=== PATIENT | female | born 1970 | race African-American/Black ===

== ENCOUNTER 2023-04-25 14:59 | Emergency (ER) | payer OTHER, SELFPAY ==
[2023-04-25 15:16] VITALS: BP 157/93
--- NOTE | 2023-04-25 18:59 | ED.GENMED ---
History of Present Illness
<Eunice Farrell BLOCKMAN - Last Filed: 04/27/23 17:30>
General
Chief Complaint: Gynecological Problem
Source: patient
Exam Limitations: none
Time Seen by Provider: 04/25/23 18:34
Nursing documentation reviewed up to this point in time: agreed with
Travel History
Have you had any contact with someone who has COVID-19?: No
Do you have any symptoms of coronavirus? Fever > 100 degrees, chills, cough, shortness of breath, sore throat, loss of taste or smell, muscle aches, or headache?: No
History of Present Illness
History of Present Illness:
53-year-old female states she has a known cyst on her left ovary that was diagnosed 01/2022. She feels left lower abdominal pressure. She also states she sees fatigued, has heartburn, 'lots of growling in my stomach' and thinks the symptoms are
related to her ovarian cyst.
Records reviewed: pt has Pelvic and trans vaginal US 01/2022: IMPRESSION:
[place] anechoic structure in the right adnexa measuring 3.5 x 1 x 2.8 cm. Uncertain etiology and significance. Difficulty visualizing right ovarian tissue secondary to large amount of bowel gas. Consider further evaluation/characterization with
follow-up MRI.
Pt never had the MRI as her became ill.
Past History
<Eunice Farrell BLOCKMAN - Last Filed: 04/27/23 17:30>
Past History
ED Past Surgical History: Gynecological (Hysterectomy) and Orthopedic
Social History
Tobacco: Smoker
Alcohol: None
Personal: Single
Living: alone
Employment: Employed
Review of Systems
<Eunice Farrell BLOCKMAN - Last Filed: 04/27/23 17:30>
Review of Systems
Allergies reviewed?: Yes
All Other Systems: ROS reviewed and negative except as documented in HPI and ROS
Constitutional: Reports fatigue; Denies fever
Respiratory: Denies trouble breathing
Cardiac: Denies chest pain
ABD/GI: Reports abdominal pain; Denies nausea, vomiting, diarrhea, constipated or anorexia
: Denies dysuria, frequency, difficulty voiding or urgency
Musculoskeletal: Reports no symptoms
Skin: Reports no symptoms
Neurological: Reports no symptoms
Phy Exam
<Eunice Farrell, BLOCKMAN - Last Filed: 04/27/23 17:30>
Physical Exam
Physical Exam:
GENERAL: No acute distress. A&Ox3.
CONSTITUTIONAL: Afebrile.
EYES: Clear, conjunctivae normal
ENMT: moist mucus membranes, Pharynx nl
RESPIRATORY: Regular respirations, nonlabored, lungs clear.
CARDIOVASCULAR: Regular rate and rhythm, no murmurs, no rubs.
GI: Soft, tender LLQ. normal BS
MUSCULOSKELETAL: Moves with ease. Well perfused.
SKIN: Warm, dry, normal
PSYCH: Normal mood and affect. Well kept, interactive and appropriate
NEUROLOGIC: Awake, alert and oriented. No focal neurological deficits
Course
<Eunice Farrell, BLOCKMAN - Last Filed: 04/27/23 17:30>
Orders/Labs/Results
Orders:
Orders
04/25/23 18:54
US Pelvis W Transvag Combined Urgent
Comment:
Reason For Exam: LLQ pain
04/25/23 19:25
Complete Blood Count/With Diff Urgent
Comprehensive Metabolic Panel Urgent
HCG, Serum Qualitative Screen Urgent
Comment: ADD ON
Urinalysis Reflex To Culture Urgent
Date Specimen was Collected: 04/25/23
Time Specimen was Collected: 19:24
Urine Microscopic Reflex Cult Urgent
Urine Culture Urgent
KANNAN Source: U
Specimen Description:
Date Specimen was Collected: 04/25/23
Time Specimen was Collected: 19:24
04/25/23 22:05
Add On- LAB Urgent
Tests Added?: serum HCG
04/25/23 22:17
0.9% Sodium Chloride 500 ml [Nss] 500 ml IV BOLUS
04/25/23 22:26
Iohexol [Omnipaque] See Protocol PO NOW STA
04/26/23 00:35
CT Abd/pel W Iv And Oral Contr Urgent
Reason For Exam: abdominal pain, free fluid seen on US R adenexa
Abnormal Lab Results
04/25/23
19:25
Carbon Dioxide 31 H mmol/L
(22-30)
BUN 18 H mg/dl
(7-17)
Glucose 101 H mg/dl
(70-99)
Ur Occult Blood Reflex Trace A
(Negative)
Urine Bacteria (Reflex) Many A
(Negative)
04/25/23 19:25
04/25/23 19:25
Vital Signs
Initial and Last Documented VS:
Initial Vital Signs
Temp Pulse Resp BP Pulse Ox
98.3 F 81 18 157/93 98
04/25/23 15:16 04/25/23 15:16 04/25/23 15:16 04/25/23 15:16 04/25/23 15:16
Last Documented Vital Signs
Temp Pulse Resp BP Pulse Ox
98.3 F 68 16 132/83 100
04/25/23 15:16 04/26/23 01:39 04/26/23 01:39 04/26/23 01:39 04/26/23 01:39
Salbadorlt;Jackson Devine, DO - Last Filed: 04/26/23 01:27>
Orders/Labs/Results
Orders:
Orders
04/25/23 18:54
US Pelvis W Transvag Combined Urgent
Comment:
Reason For Exam: LLQ pain
04/25/23 19:25
Complete Blood Count/With Diff Urgent
Comprehensive Metabolic Panel Urgent
HCG, Serum Qualitative Screen Urgent
Comment: ADD ON
Urinalysis Reflex To Culture Urgent
Date Specimen was Collected: 04/25/23
Time Specimen was Collected: :24
Urine Microscopic Reflex Cult Urgent
Urine Culture Urgent
[place] Source: U
Specimen Description:
Date Specimen was Collected: 04/25/23
Time Specimen was Collected: :
04/25/23 22:05
Add On- LAB Urgent
Tests Added?: serum HCG
04/25/23 22:17
0.9% Sodium Chloride 500 ml [Nss] 500 ml IV BOLUS
04/25/23 22:26
Iohexol [Omnipaque] See Protocol PO NOW STA
04/26/23 00:35
CT Abd/pel W Iv And Oral Contr Urgent
Reason For Exam: abdominal pain, free fluid seen on US R adenexa
Abnormal Lab Results
04/25/23
19:25
Carbon Dioxide 31 H mmol/L
(22-30)
BUN 18 H mg/dl
(7-17)
Glucose 101 H mg/dl
(70-99)
Ur Occult Blood Reflex Trace A
(Negative)
Urine Bacteria (Reflex) Many A
(Negative)
04/25/23 19:25
04/25/23 19:25
Vital Signs
Initial and Last Documented VS:
Initial Vital Signs
Temp Pulse Resp BP Pulse Ox
98.3 F 81 18 157/93 98
04/25/23 15:16 04/25/23 15:16 04/25/23 15:16 04/25/23 15:16 04/25/23 15:16
Last Documented Vital Signs
Temp Pulse Resp BP Pulse Ox
98.3 F 68 16 132/83 100
04/25/23 15:16 04/26/23 01:39 04/26/23 01:39 04/26/23 01:39 04/26/23 01:39
<Barney Tadeo PA-C - Last Filed: 04/28/23 13:50>
Orders/Labs/Results
Orders:
Orders
04/25/23 18:54
US Pelvis W Transvag Combined Urgent
Comment:
Reason For Exam: LLQ pain
04/25/23 19:25
Complete Blood Count/With Diff Urgent
Comprehensive Metabolic Panel Urgent
HCG, Serum Qualitative Screen Urgent
Comment: ADD ON
Urinalysis Reflex To Culture Urgent
Date Specimen was Collected: 04/25/23
Time Specimen was Collected: 19:24
Urine Microscopic Reflex Cult Urgent
Urine Culture Urgent
[place] Source: U
Specimen Description:
Date Specimen was Collected: 04/25/23
Time Specimen was Collected: 19:24
04/25/23 22:05
Add On- LAB Urgent
Tests Added?: serum HCG
04/25/23 22:17
0.9% Sodium Chloride 500 ml [Nss] 500 ml IV BOLUS
04/25/23 22:26
Iohexol [Omnipaque] See Protocol PO NOW STA
04/26/23 00:35
CT Abd/pel W Iv And Oral Contr Urgent
Reason For Exam: abdominal pain, free fluid seen on US R adenexa
Abnormal Lab Results
04/25/23
19:25
Carbon Dioxide 31 H mmol/L
(22-30)
BUN 18 H mg/dl
(7-17)
Glucose 101 H mg/dl
(70-99)
Ur Occult Blood Reflex Trace A
(Negative)
Urine Bacteria (Reflex) Many A
(Negative)
04/25/23 19:25
04/25/23 19:25
Vital Signs
Initial and Last Documented VS:
Initial Vital Signs
Temp Pulse Resp BP Pulse Ox
98.3 F 81 18 157/93 98
04/25/23 15:16 04/25/23 15:16 04/25/23 15:16 04/25/23 15:16 04/25/23 15:16
Last Documented Vital Signs
Temp Pulse Resp BP Pulse Ox
98.3 F 68 16 132/83 100
04/25/23 15:16 04/26/23 01:39 04/26/23 01:39 04/26/23 01:39 04/26/23 01:39
<Eunice Farrell NP - Last Filed: 04/27/23 17:30>
MDM/Problems Addressed
Differential Diagnosis Includes:
Ovarian cyst
MDM/Problems Addressed:
53-year-old female states she has a known cyst on her left ovary that was diagnosed about a year ago. She feels left lower abdominal pressure. She also states she sees fatigued, has heartburn, and thinks the symptoms are related to her ovarian
cyst.
04/25/2023 2206 PM
CBC normal
CMP: No clinically significant abnormality
UA: Negative
Pelvic ultrasound: Radiology report read: IMPRESSION:
Prior hysterectomy.
Unremarkable sonographic appearance of the left ovary.
Records reviewed: pt has Pelvic and trans vaginal US 01/2022: IMPRESSION:
[place] anechoic structure in the right adnexa measuring 3.5 x 1 x 2.8 cm. Uncertain etiology and significance. Difficulty visualizing right ovarian tissue secondary to large amount of bowel gas. Consider further evaluation/characterization with
follow-up MRI.
Pt never had the MRI as her became ill.
Richard [employer] tech informed pt that she has free fluid in the area mentioned above and suggested she have a CT scan here since we don't do MRI's in the ED. patient requesting a CAT scan
Dr. Lopez informs me that she should have a CAT scan with p.o. and IV contrast
04/25/2023 2356 PM
Patient is prepping for CAT scan, remains comfortable
Case discussed with Dr. Devine who will assume care from this point.
<Jackson Devine DO - Last Filed: 04/26/23 01:27>
*Radiology
Radiology exam reviewed: radiology read reviewed (CT abdomen pelvis shows left ovarian cyst, otherwise no acute findings)
*Pulse Oximetry
Patient hypoxic: no
*EKG
Interpreted by ED Provider?: NA
*Waiter/Waitress Dining Car Interpretation
Rate: Waiter/Waitress Dining Car- N/A
*Critical Care Note
Total Time (30-74mins, 75-104mins- exclusive of procedures): Not Applicable
<Jackson Devine, - Last Filed: 04/26/23 01:27>
Patient Management
Social determinants of health affecting care: Living situation
Escalation/DeEscalation of care consider admission/obs:
Admit not indicated
<Barney Tadeo PA-C - Last Filed: 04/28/23 13:50>
Update Note
Update Note:
1:49 PM: Patient's urinalysis shows greater than 100,000 CFU of Klebsiella. Sensitive to Augmentin. Prescription for this sent to patient's pharmacy. Patient is aware and will pick medication up today.
ED Attending Note
<Eunice Farrell BLOCKMAN - Last Filed: 04/27/23 17:30>
-
Portions of this chart may have been created with voice recognition software.� Occasional wrong word or��sound alike� substitutions may have occurred due to the inherent limitations of voice recognition software.
<Jackson Devine DO - Last Filed: 04/26/23 01:27>
ED Attending Note
Patient seen and examined by attending physician: Yes
ED Attending Note:
I reviewed and agree with history and treatment plan by Tiara Farrell. Ultrasound no acute findings, CT scan consistent with left ovarian cyst. Patient stable for discharge. No signs of torsion.
Discharge Plan
Departure
Patient Disposition: Home (Routine Discharge)
Date of Disposition: 04/26/23
Time of Disposition: 01:23
Patient with high blood pressure during this ER visit?: Yes
Condition: Good
Discharge Problem:
Cyst of left ovary
Instructions: Ovarian Cyst ED
Prescriptions:
New
amoxicillin-pot clavulanate 875-125 mg tablet
1 tab PO BID 10 Days Qty: 20 0RF
No Action
pantoprazole [Protonix] 40 mg tablet,delayed release (DR/EC)
40 mg PO DAILY Qty: 10 0RF
sucralfate [Carafate] 1 gram tablet
1 g PO BID Qty: 20 0RF
Referrals:
Uziel Shaw DO [Family Provider] -
Heidi Zavaleta MD [Active] - Call in 1-3 days for appt
Interventions
Interventions:
*Risk Screen - Suicide Last Done: 04/26/23 01:40
*General Assessment Last Done: 04/25/23 22:41
*Neglect/Abuse Screening Last Done: 04/26/23 01:40
ED- Fall Risk Assessment Last Done: 04/25/23 22:43
*ED COVID-19 Vaccine History Last Done: 04/25/23 22:43
*Nursing Disposition Last Done: 04/26/23 01:40
ED-Female Genitourinary Assessment Last Done: 04/25/23 20:22
Discharge Date and Time
Discharge Date/Time: 04/26/23 01:43
[2023-04-25 19:42] LABS: % Basophils 0.5 % (0-2); % Eosinophils 0.5 % (0-6); % Immature Granulocytes 0.5 % (0-0.5); % Lymphocytes 34.3 % (20.5-51.1); % Monocytes 5.3 % (1.7-9.3); % Neutrophils 58.9 % (42.2-75.2); Absolute Monocytes 0.5 10^3/uL (0.1-0.6); Absolute Neutrophils 5.2 10^3/uL (1.4-6.5); Hematocrit 38.6 % (37.0-47.0); Hemoglobin 12.9 g/dL (12.0-16.0); Mean Corp Hgb Conc. 33.4 g/dL (33.0-37.0); Mean Corpuscular Hgb 29.3 pg (27.0-31.0); Mean Corpuscular Volume 87.5 fL (81.0-99.0); Mean Platelet Volume 9.6 fL (7.4-10.4); Nucleated Red Blood Cells % 0 %; Platelet Count 211 10^3/uL (130-400); Red Blood Cell Count 4.41 10^6/uL (4.20-5.40); Red Cell Dist. Width 13.6 % (11.5-14.5); White Blood Cell Count 8.8 10^3/uL (4.8-10.8)
[2023-04-25 19:43] LABS: Urine Albumin Negative (Neg - Trace); Urine Bilirubin Negative (Negative); Urine Character Slightly Cloudy (Clear); Urine Color Yellow; Urine Glucose Negative (Negative); Urine Ketone Negative (Negative); Urine Leukocyte Negative (Negative); Urine Nitrite Negative (Negative); Urine Occult Blood Trace (Negative); Urine Urobilinogen Negative (Neg - 1+)
[2023-04-25 19:52] LABS: Urine Bacteria Many (Negative); Urine Red Blood Cell 0-2 /HPF (0-2); Urine White Cell 0-2 /HPF (0-5)
[2023-04-25 19:57] LABS: ALT (SGPT) 14 U/L (0-35); AST (SGOT) 17 U/L (14-36); Albumin 4.2 g/dl (3.5-5.0); Alkaline Phosphatase 84 U/L (38-126); Blood Urea Nitrogen 18 mg/dl (7-17); Calcium 9.7 mg/dl (8.4-10.2); Carbon Dioxide 31 mmol/L (22-30); Chloride 100 mmol/L (98-107); Glucose 101 mg/dl (70-99); Sodium 139 mmol/L (135-145); Total Bilirubin 0.5 mg/dl (0.2-1.3); Total Protein 7.3 g/dl (6.3-8.2); eGFR > 60.00
[2023-04-25] MEDS: NSS 500 IV (22:28)
[2023-04-25] MEDS: OMNIPAQUE 50 ML PO (22:31)
[2023-04-25 22:34] LABS: HCG, Serum Qualitative Screen Negative
[2023-04-25 22:43] VITALS: BP 156/63
[2023-04-26 01:39] VITALS: BP 132/83
== END 2023-04-26 01:43 | disposition home or self-care (01) ==
LOC: EMR 14:59
PROVIDERS: Registered Nurse; EMERGENCY PHYSICIAN Emergency Medicine; FAMILY PHYSICIAN Family Medicine
DX: N83.202 Unspecified ovarian cyst, left side (principal); Z90.710 Acquired absence of both cervix and uterus
CPT/HCPCS: 99285; 96360; 74177; 76830; 76856; 80053; 81003; 81015; 84703; 85025; 87077; 87086; 87186; Q9967

== ENCOUNTER → 2023-07-01 18:24 | Outpatient (REF) | payer OTHER, SELFPAY | LOC: MRI 3T 18:24 | PROVIDERS: ATTENDING PHYSICIAN Obstetrics & Gynecology Gynecology; FAMILY PHYSICIAN Family Medicine | DX: N83.209 Unspecified ovarian cyst, unspecified side (principal) | CPT/HCPCS: 72197; A9575 ==